=== PATIENT | male | born 1985 | race Two or more races ===

== ENCOUNTER 2020-08-01 10:39 | Emergency (ER) | payer BC ==
[~2020-08-01] VITALS: Ht 170.2 cm; Wt 82.0 kg
[2020-08-01 12:14] VITALS: BP 131/87
--- NOTE | 2020-08-01 13:16 | ED.ADGEN ---
Past Medical History Past Medical History: No Pertinent History Past Surgical History: No Surgical History Smoking Status: Never Smoker Alcohol Use: Occasionally General Adult EDM: Chief Complaint: DENTAL PROBLEM HPI: HPI: Patient is a 35 year old male who presents to the emergency department with concerns of his gums bleeding after having a tooth extracted in the left upper quadrant yesterday. Patient states that his gums continue to ooze blood all night last night. He denies any shortness of breath, dizziness, nausea, vomiting, headache, fever, palpitations, chest pain, or difficulty swallowing. Patient reports that he went back to the dentist this morning and the dentist told him that he is not bleeding from the extraction site he is bleeding from his gums around. The numbness and to the emergency room and told him that he may have a serious condition that causes bleeding gums. The patient denies any history of gums bleeding prior to having the dental work yesterday. He denies any history of bruising, or nosebleeds. He currently denies pain. Review of Systems: Review of Systems: Complete ROS is negative unless otherwise noted in HPI. Allergies: Allergies: Allergies Coded Allergies Type Severity Reaction Last Updated Verified Penicillins Allergy Intermediate 08/01/20 Yes acetaminophen Allergy Intermediate 08/01/20 Yes dextromethorphan Allergy Intermediate 08/01/20 Yes doxylamine Allergy Intermediate 08/01/20 Yes pseudoephedrine Allergy Intermediate 08/01/20 Yes Physical Exam: PE: See Above Constitutional: Well developed, well nourished, no acute distress, non-toxic appearance. [] HENT: Normocephalic, atraumatic, bilateral external ears normal, nose normal; there is a healing socket from a dental extraction in the left upper quadrant with clot in place. Mild facial swelling in the area of the extraction, no warmth, no visible or palpable dental abscess. There is some gingival abrasions in the left upper gingiva that are not bleeding and appear to have clotted off. [] Eyes: PERRLA, EOMI, conjunctiva normal, no discharge. [] Neck: Normal range of motion, supple, nontender, no stridor. [] Cardiovascular:Heart rate regular rhythm Lungs & Thorax: Respirations even and unlabored, no retractions, no respiratory distress Skin: Warm, dry, pink, no bruising, no rash. Extremities: No cyanosis, ROM intact, no edema. [] Neurologic: Alert and oriented X 3, no focal deficits noted. [] Psychologic: Affect normal, judgement normal, mood normal. [] Current Patient Data: Vital Signs: Vital Signs Date Time Temp Pulse Resp B/P (MAP) Pulse Ox O2 Delivery O2 Flow Rate FiO2 08/01/20 12:14 97.9 104 16 131/87 (102) 98 Room Air 97.9 EKG: EKG: [] Heart Score: Risk Factors: Risk Factors: DM, Current or recent (<one month) smoker, HTN, HLP, family history of CAD, obesity. Risk Scores: Score 0 - 3: 2.5% MACE over next 6 weeks - Discharge Home Score 4 - 6: 20.3% MACE over next 6 weeks - Admit for Clinical Observation Score 7 - 10: 72.7% MACE over next 6 weeks - Early Invasive Strategies Radiology/Procedures: Radiology/Procedures: [] Course & Med Decision Making: Course & Med Decision Making Pertinent Labs and Imaging studies reviewed. (See chart for details) 35-year-old male presents emergency room with complaints of bleeding from his gums after dental procedure yesterday. On exam there was no active bleeding. Patient had no history of anemia. He denied any prior history of gingival bleeding. I encouraged patient to follow-up with a primary care doctor for further evaluation and medical treatment. Patient states that his father had diabetes and expressed concern that he should be tested for it. I advised the patient that a primary care doctor is better able to manage chronic problems such as diabetes. The patient denied any polyuria, polydipsia, or polyphagia. Encouraged patient to follow a bland diet, and drink bland noncarbonated beverages for the next few days. Instructed him to avoid sucking out of a straw or smoking cigarettes as these can cause the clot come loose from the extracted site resulting in a dry socket. Patient verbalized an understanding of home care, medications, follow-up, and return to ED instructions and was in agreement with the plan of care. [] Dragon Disclaimer: Dragon Disclaimer: This electronic medical record was generated, in whole or in part, using a voice recognition dictation system. Departure Departure Impression: Primary Impression: Status post tooth extraction Additional Impression: Abrasion of upper gingiva Disposition: 01 DC HOME SELF CARE/HOMELESS Condition: STABLE Referrals: NO PCP (PCP) Patient Instructions: Tooth Pulling, Care After, [id number] Additional Instructions: Do not drink from a straw or smoke cigarettes as this can cause a dry socket deformed. Recommend bland foods and carbonated beverages. Follow-up with a primary care doctor for further evaluation of your health. Return to the ER symptoms worsen. [facility] [address] [place] [address] [facility] [address] [place] [address] [facility] [address] [facility] [place] [address] [facility] [address] [place] [address] [facility] [address] [place] [address] [facility] [address] [place] [address] [facility] [address] [place] [address] [facility] [address] [place] [address] [facility] [address] [place] [address] [facility] [address] [place] [address] Problem Qualifiers Additional Impression: Abrasion of upper gingiva Encounter type: initial encounter Qualified Codes: S00.512A - Abrasion of oral cavity, initial encounter SUSANNE CAMPBELL [employer] Aug 01, 2020 13:16
== END 2020-08-01 13:33 | disposition home or self-care (01) ==
LOC: ER 10:39
DX: S00.512A Abrasion of oral cavity, initial encounter (principal); Z98.818 Other dental procedure status; Z88.0 Allergy status to penicillin; Z88.6 Allergy status to analgesic agent; Z88.8 Allergy status to other drugs, medicaments and biological substances; X58.XXXA Exposure to other specified factors, initial encounter; Y93.89 Activity, other specified; Y92.89 Other specified places as the place of occurrence of the external cause; Y99.8 Other external cause status
CPT/HCPCS: 99281; 99283